=== PATIENT | male | born 1965 | race Caucasian/White ===

== ENCOUNTER 2016-10-31 20:54 | Emergency (ER) | payer MEDICAID ==
[2016-10-31] MEDS ORDERED: ONDANSETRON 4MG/2ML VIAL (J2405) As Ordered ONE (21:50)
[2016-10-31] MEDS ORDERED: IPRATROPIUM 0.5MG/ALBUTEROL 2.5MG INH SOL UD 3ML (DUONEB)(J7620) As Ordered ONE ×2 (21:58→22:19)
[2016-10-31 22:05] LABS: BASO # 0.2 K/mm3 (0.0-0.2); BASO % 1.8 % (0.0-1.0); EOS # 0.2 K/mm3 (0.0-0.50); LARGE UNSTAINED CELL # 0.1 K/mm3 (0.0-0.4); LARGE UNSTAINED CELL % 1.5 % (0.0-4.0); LYMPH # 1.1 K/mm3 (1.5-4.5); LYMPH % 10.5 % (24.0-44.0); MEAN CORPUSCULAR HEMOGLOBIN 31.4 pg (27.0-33.0); MEAN CORPUSCULAR HGB CONC 32.7 g/dl (32.0-36.5); MONO # 0.3 K/mm3 (0.0-0.8); MONO % 3.1 % (0.0-5.0); NEUTROPHILS # 7.4 K/mm3 (1.8-7.7); NEUTROPHILS % 81.1 % (36.0-66.0); PLATELET COUNT, AUTOMATED 198 k/mm3 (150-450); RED CELL DISTRIBUTION WIDTH 13.4 % (11.5-14.5); WHITE BLOOD COUNT 9.1 K/mm3 (4.0-10.0)
[2016-10-31 22:29] LABS: ALBUMIN 3.7 GM/DL (3.2-5.2); ALBUMIN/GLOBULIN RATIO 1.03 (1.00-1.93); ALKALINE PHOSPHATASE 78 U/L (45-117); ALT/SGPT 26 U/L (12-78); AMYLASE 37 U/L (25-115); ANION GAP 9 MEQ/L (8-16); AST/SGOT 13 U/L (15-37); BILIRUBIN,DIRECT 0.3 MG/DL (0.0-0.2); BLOOD UREA NITROGEN 12 MG/DL (7-18); CALCIUM LEVEL 8.2 MG/DL (8.5-10.1); CARBON DIOXIDE LEVEL 28 MEQ/L (21-32); CHLORIDE LEVEL 103 MEQ/L (98-107); CREATININE FOR GFR 1.02 MG/DL (0.70-1.30); GLOMERULAR FILTRATION RATE > 60.0 (>56); GLUCOSE, FASTING 97 MG/DL (70-105); POTASSIUM SERUM 3.7 MEQ/L (3.5-5.1); SODIUM LEVEL 140 MEQ/L (136-145); TOTAL PROTEIN 7.3 GM/DL (6.4-8.2)
[2016-10-31] MEDS ORDERED: AUGMENTIN 875 MG TAB As Ordered ONE (23:06)
[2016-10-31] MEDS ORDERED: ONDANSETRON 4 MG ORAL DISINTEGRATING TAB (S0181) As Ordered ONE (23:06)
--- NOTE | 2016-10-31 23:18 | EDDOCDS ---
Physician Documentation [facility] Name: Jimenez Maciel Age: 51 yrs Sex: Male : 1965 Arrival Date: 10/31/2016 Time: 20:54 Bed I6 / 28 Private MD: NO PRIMARY PHYSICIAN, . Disposition: 10/31/16 23:05 Discharged to Home/Self Care. Impression: Streptococcal pharyngitis, Acute bronchitis, Nausea and vomiting, Diarrhea, unspecified. - Condition is Stable. - Discharge Instructions: Diarrhea, Nausea and Vomiting, Cokq-py-Aeld, Strep Throat, Mxis-ly-Gdiu, Acute Bronchitis, Bnkw-yg-Skri. - Prescriptions for Augmentin 875- 125 mg Oral Tablet - take 1 tablet by ORAL route every 12 hours for 10 days; 20 tablet. Claritin 10 mg Oral Tablet - take 1 tablet by ORAL route once daily As needed; 30 tablet. ZOFRAN ODT 4 mg - dissolve 1 tablet by ORAL route 4 times per day As needed do not chew, do not swallow whole; 10 tablet. Mucinex 600 mg - take 1 tablet by ORAL route 2 times per day; 30 tablet. Albuterol Sulfate 90 mcg/actuation Inhalation HFA Aerosol Inhaler - inhale 2 puff by INHALATION route every 4 hours As needed; 1 Inhaler. - Medication Reconciliation, Local Pharmacy Hours, Referral List Call for Appointment, Work Release Form - 3 day form. - [facility]: [facility] ; When: 1 - 2 days; Reason: Recheck today's complaints, Continuance of care. Follow up: Emergency Department; Reason: Worsening of conditions. - Problem is new. - Symptoms have improved. Historical: - Allergies: no known allergies; - Home Meds: 1. none - PMHx: none; - PSHx: "paige in right leg"; - Social history: Smoking status: Patient uses tobacco products, heavy tobacco smoker. No barriers to communication noted, The patient speaks fluent Urdu. - Family history: Not pertinent. - : The pt / caregiver states he / she is not on anticoagulants. Home medication list is obtained from the patient. - Exposure Risk Screening:: None identified. Vital Signs: 10/31 20:56 BP 115 / 79; Pulse 92; Resp 18 S; Temp 98.4(O); Pulse Ox 96% on R/A; Weight 72.57 kg / gr2 159.99 lbs (R); Height 5 ft. 7 in. (170.18 cm) (R); Pain 2/10; 23:14 BP 115 / 70; Pulse 83; Resp 20; Temp 98.7(O); Pulse Ox 95% on R/A; Pain 0/10; jmv 20:56 Body Mass Index 25.06 (72.57 kg, 170.18 cm) gr2 MDM: 21:22 ECG WITH READING ER PHYS+CARDIAG ordered. EDMS 21:44 Albuterol-Ipratropium 1 neb Nebulizer every 20 minutes x3 ordered. ef1 21:44 Call Respiratory ordered. ef1 21:44 NS 0.9% 1000 ml IV at bolus once ordered. ef1 21:44 Ondansetron 4 mg IVP once ordered. ef1 21:44 IV Saline Lock ordered. ef1 21:44 Undress patient appropriately for examination ordered. ef1 21:44 Strep Screen, Nursing ordered. ef1 21:44 Obtain sample by nasopharyngeal swab ordered. ef1 21:45 Amylase Ordered. EDMS 21:45 Basic Metabolic Profile Ordered. EDMS 21:45 CBC with Diff Ordered. EDMS 21:45 Lipase Ordered. EDMS 21:45 Liver Profile Ordered. EDMS 21:45 Urinalysis Ordered. EDMS 21:45 Urine Culture Ordered. EDMS 21:45 -Influenza A&B Rapid Antigen - Nose Ordered. EDMS 21:45 Chest, 2 View (pa\\E\\lat) Ordered. EDMS 21:46 NOTHING BY MOUTH+DIET ordered. EDMS 21:49 Call Respiratory complete. rs6 22:09 CBC with Diff Reviewed. ef1 22:26 Financial registration complete. zo 22:32 [facility] Payment Agreement was scanned into [employer] and attached to record. zo 22:56 Basic Metabolic Profile Reviewed. ef1 22:56 Liver Profile Reviewed. ef1 22:56 Urinalysis Reviewed. ef1 22:56 Amylase Reviewed. ef1 22:56 Lipase Reviewed. ef1 22:56 -Influenza A&B Rapid Antigen - Nose Reviewed. ef1 23:02 Amoxicillin-Clavulanate 875 mg 1 tabs PO once ordered. ef1 23:04 Ondansetron ODT Oral Disintegrating Tablet 4 mg PO once; For take home use please ef1 ordered. Administered Medications: 21:58 Drug: NS 0.9% 1000 ml [sodium chloride 0.9 % intravenous solution] Route: IV; Rate: lf1 bolus; Site: right antecubital; 21:59 Drug: Albuterol-Ipratropium 1 neb [ipratropium-albuterol 0.5 mg-3 mg(2.5 mg base)/3 mL jh6 nebulization soln (1 neb)] Route: Nebulizer; 21:59 Drug: Ondansetron 4 mg [ondansetron HCl 2 mg/mL intravenous solution (2 mL)] Route: lf1 IVP; Site: right antecubital; 22:19 Drug: Albuterol-Ipratropium 1 neb [ipratropium-albuterol 0.5 mg-3 mg(2.5 mg base)/3 mL jh6 nebulization soln (1 neb)] Route: Nebulizer; 23:10 Drug: Amoxicillin-Clavulanate 1 tabs [amoxicillin 875 mg-potassium clavulanate 125 mg ka4 tablet (1 tabs)] Route: PO; 23:10 Drug: Ondansetron ODT 4 mg [ondansetron 4 mg disintegrating tablet (1 tabs)] {Note: ka4 dispensed to pt to take home.} Route: PO; Signatures: Dispatcher [employer] Moises Young Lisa,RN RN lf1 Marcelina Mcgee, PA-C PA-C ef1 Loly Momin,MANAGER BALANCE MANAGER BALANCE ka4 Kevin Hernández RN RN mb9 Sonya Anderson, PIPE ORGAN MECHANIC APPRENTICE PIPE ORGAN MECHANIC APPRENTICE rs6 Nelson Chacon 6 The chart was reviewed and I authenticate all verbal orders and agree with the evaluation and treatment provided.Attachments: 22:32 [facility] Payment Agreement zo MTDD
--- NOTE | 2016-10-31 23:18 | EDDOCDS ---
Nurse's Notes [facility] Name: Jimenez Maciel Age: 51 yrs Sex: Male : 1965 Arrival Date: 10/31/2016 Time: 20:54 Bed I6 Private MD: NO PRIMARY PHYSICIAN, . Diagnosis: Streptococcal pharyngitis;Acute bronchitis;Nausea and vomiting;Diarrhea, unspecified Presentation: 10/31 21:02 Presenting complaint: Patient states: "I don't feel good. I woke up last night throwing mb9 up and shittin. Basically if I cough I shit myself. I've had a runny nose and a cough and I feel short of breath". Adult Sepsis Screening: The patient does not have new or worsening altered mentation. Patient's respiratory rate is less than 22. Systolic blood pressure is greater than 100. Patient has a qSOFA score of 0- Negative Sepsis Screen. Suicide/Homicide risk assessment- the patient denies having any suicidal and/or homicidal ideations and does not present with any other emotional, behavioral or mental health complaints. Status: Patient is not a director of home health services or dependent. Transition of care: patient was not received from another setting of care. 21:02 Method Of Arrival: Walkin/Carried/Asstd mb9 21:05 Acuity: RUFINA Level 3 mb9 Triage Assessment: 21:05 General: Appears ill, Behavior is appropriate for age, cooperative. Pain: Denies pain. mb9 Pt Declines HIV testing. Respiratory: Airway is patent Respiratory effort is even, unlabored. GI: Reports nausea, vomiting. 23:12 Respiratory: Onset: The symptoms/episode began/occurred. ka4 Historical: - Allergies: no known allergies; - Home Meds: 1. none - PMHx: none; - PSHx: "paige in right leg"; - Social history: Smoking status: Patient uses tobacco products, heavy tobacco smoker. No barriers to communication noted, The patient speaks fluent Maori. - Family history: Not pertinent. - : The pt / caregiver states he / she is not on anticoagulants. Home medication list is obtained from the patient. - Exposure Risk Screening:: None identified. Screenin:03 Screening information is obtained from the patient. Fall risk: No risks identified. lf1 Assistance ADL's: requires no assistance with activities of daily living. 23:11 Abuse/DV Screen: The patient / caregiver reports he/she is: not in a situation that ka4 causes fear, pain or injury. Nutritional screening: No deficits noted. Advance Directives: There is no active DNR order. home support is adequate. Assessment: 22:03 Adult Sepsis Screening: The patient does not have new or worsening altered mentation. lf1 Patient's respiratory rate is less than 22. Systolic blood pressure is greater than 100. Patient has a qSOFA score of 0- Negative Sepsis Screen. General: Appears in no apparent distress, comfortable, Behavior is cooperative. Pain: Location: abdomen Pain currently is 4 out of 10 on a pain scale. Quality of pain is described as aching, crampy. Neurological: Level of Consciousness is awake, alert, Oriented to person, place, time, Speech is normal. EENT: Reports nasal congestion. Cardiovascular: Chest pain is denied. Respiratory: Respiratory effort is even, unlabored, Respiratory pattern is regular, Breath sounds are coarse Reports cough that is non-productive. GI: Reports diarrhea, nausea, vomiting. : No deficits noted. Derm: Skin is flushed. Injury Description: No known injury. Vital Signs: 20:56 BP 115 / 79; Pulse 92; Resp 18 S; Temp 98.4(O); Pulse Ox 96% on R/A; Weight 72.57 kg gr2 (R); Height 5 ft. 7 in. (170.18 cm) (R); Pain 2/10; 23:14 BP 115 / 70; Pulse 83; Resp 20; Temp 98.7(O); Pulse Ox 95% on R/A; Pain 0/10; jmv 20:56 Body Mass Index 25.06 (72.57 kg, 170.18 cm) gr2 Vitals: 20:56 Log In Time: October 31, 2016 at 20:56. gr2 ED Course: 20:55 Patient visited by Isabel Blake. gr2 20:55 NO PRIMARY PHYSICIAN, . is Private Physician. gr2 20:55 Patient moved to Waiting gr2 20:57 Patient visited by Isabel Blake. gr2 20:57 Patient moved to Pre RCE gr2 21:04 Triage Initiated mb9 21:20 Patient moved to Triage 1 rs6 21:32 Patient visited by Sonya Anderson, HEARING IMPAIRED ITINERANT TEACHER. rs6 21:32 EKG done. (by ED staff). Reviewed by Ovi Hansen DO. rs6 21:36 Marcel[facility] Mcgee [facility]-C [facility]. ef1 21:36 Ovi Hansen DO is Attending Physician. ef1 21:36 Patient visited by Mareclina Mcgee PA-C. ef1 21:49 Patient moved to rs6 21:54 -Influenza A&B Rapid Antigen - Nose Sent. km 22:00 Patient visited by Tanja Scott RN. lf1 22:03 The patient / caregiver is instructed regarding the plan of care and ED course. lf1 Accompanied by Family Member. 22:03 Inserted saline lock: 20 gauge in right antecubital area and blood collected. The [facility] patient tolerated the procedure well. By Giselle Lyles RN. 22:08 Labs drawn. (by ED staff). Sent per order to lab. [facility] 22:31 Patient visited by Marcelina Mcgee PA-C. ef1 22:32 [facility] Payment Agreement was scanned into [employer] and attached to record. zo 22:38 Urinalysis Sent. ttb 22:38 Urine Culture Sent. ttb 22:38 Urine collected. ttb 22:53 Patient visited by Marcelina Mcgee PA-C. ef1 23:05 [facility] is Referral Physician. ef1 23:11 Discontinued IV lock intact, bleeding controlled, pressure dressing applied, No ka4 redness/swelling at site. No procedures done that require assistance. 23:15 Patient visited by Per Gaytan PCA. nicci 23:18 Patient visited by Loly Momin LPN. ka4 Administered Medications: 21:58 Drug: NS 0.9% 1000 ml [sodium chloride 0.9 % intravenous solution] Route: IV; Rate: lf1 bolus; Site: right antecubital; 21:59 Drug: Albuterol-Ipratropium 1 neb [ipratropium-albuterol 0.5 mg-3 mg(2.5 mg base)/3 mL 6 nebulization soln (1 neb)] Route: Nebulizer; 21:59 Drug: Ondansetron 4 mg [ondansetron HCl 2 mg/mL intravenous solution (2 mL)] Route: lf1 IVP; Site: right antecubital; 22:19 Drug: Albuterol-Ipratropium 1 neb [ipratropium-albuterol 0.5 mg-3 mg(2.5 mg base)/3 mL jh6 nebulization soln (1 neb)] Route: Nebulizer; 23:10 Drug: Amoxicillin-Clavulanate 1 tabs [amoxicillin 875 mg-potassium clavulanate 125 mg ka4 tablet (1 tabs)] Route: PO; 23:10 Drug: Ondansetron ODT 4 mg [ondansetron 4 mg disintegrating tablet (1 tabs)] {Note: ka4 dispensed to pt to take home.} Route: PO; RT: 21:59 Initial Med Neb Given as ordered Patient was instructed and evaluated on procedure jh6 Patient tolerated procedure well without adverse effect. Respiratory: Airway is patent Respiratory effort is even, unlabored, Respiratory pattern is regular symmetrical, Breath sounds are diminished in right upper lobe, left upper lobe, right middle lobe, left lower lobe, right lower lobe, left posterior upper lobe, right posterior upper lobe, left posterior lower lobe, right posterior middle lobe and right posterior lower lobe. 22:09 Respiratory: Airway is patent Respiratory effort is even, unlabored, Respiratory jh6 pattern is regular symmetrical, Breath sounds are clear in right upper lobe, left upper lobe, right middle lobe, left lower lobe, right lower lobe, left posterior upper lobe and right posterior upper lobe Breath sounds are diminished in left lower lobe, right lower lobe, left posterior upper lobe, right posterior upper lobe, left posterior lower lobe, right posterior middle lobe and right posterior lower lobe. 22:20 Subsequent Med Neb Given as ordered Patient was reinforced on procedure Patient jh6 tolerated procedure well without adverse effect. Respiratory: Airway is patent Respiratory effort is even, unlabored, Respiratory pattern is regular symmetrical, Breath sounds are clear in right upper lobe, left upper lobe, right middle lobe, left lower lobe and right lower lobe. Order Results: Lab Order: Amylase; SPEC'M 10/31/16 21:56 Test: AMYLASE; Value: 37; Range: 25-115; Units: U/L; Status: F Lab Order: Basic Metabolic Profile; SPEC'M 10/31/16 21:56 Test: GLUCOSE, FASTING; Value: 97; Range: 70-105; Units: MG/DL; Status: F Test: BLOOD UREA NITROGEN; Value: 12; Range: 7-18; Units: MG/DL; Status: F Test: CREATININE FOR GFR; Value: 1.02; Range: 0.70-1.30; Units: MG/DL; Status: F Test: GLOMERULAR FILTRATION RATE; Value: > 60.0; Range: >56; Status: F Test: SODIUM LEVEL; Value: 140; Range: 136-145; Units: MEQ/L; Status: F Test: POTASSIUM SERUM; Value: 3.7; Range: 3.5-5.1; Units: MEQ/L; Status: F Test: CHLORIDE LEVEL; Value: 103; Range: 98-107; Units: MEQ/L; Status: F Test: CARBON DIOXIDE LEVEL; Value: 28; Range: 21-32; Units: MEQ/L; Status: F Test: ANION GAP; Value: 9; Range: 8-16; Units: MEQ/L; Status: F Test: CALCIUM LEVEL; Value: 8.2; Range: 8.5-10.1; Abnormal: Below low normal; Units: MG/DL; Status: F Test Note: ; Units are mL/min/1.73 m2 Chronic Kidney Disease Staging per NKF: Stage I & II GFR >=60 Normal to Mildly Decreased Stage III GFR 30-59 Moderately Decreased Stage IV GFR 15-29 Severely Decreased Stage V GFR <15 Very Little GFR Left ESRD GFR <15 on SOLDER DEPOSIT OPERATOR Lab Order: CBC with Diff; SPEC'M 10/31/16 21:56 Test: WHITE BLOOD COUNT; Value: 9.1; Range: 4.0-10.0; Units: K/mm3; Status: F Test: RED BLOOD COUNT; Value: 5.29; Range: 4.30-6.10; Units: M/mm3; Status: F Test: HEMOGLOBIN; Value: 16.6; Range: 14.0-18.0; Units: g/dl; Status: F Test: HEMATOCRIT; Value: 50.8; Range: 42.0-52.0; Units: %; Status: F Test: MEAN CORPUSCULAR VOLUME; Value: 96.0; Range: 80.0-96.0; Units: fl; Status: F Test: MEAN CORPUSCULAR HEMOGLOBIN; Value: 31.4; Range: 27.0-33.0; Units: pg; Status: F Test: MEAN CORPUSCULAR HGB CONC; Value: 32.7; Range: 32.0-36.5; Units: g/dl; Status: F Test: RED CELL DISTRIBUTION WIDTH; Value: 13.4; Range: 11.5-14.5; Units: %; Status: F Test: PLATELET COUNT, AUTOMATED; Value: 198; Range: 150-450; Units: k/mm3; Status: F Test: NEUTROPHILS %; Value: 81.1; Range: 36.0-66.0; Abnormal: Above high normal; Units: %; Status: F Test: LYMPH %; Value: 10.5; Range: 24.0-44.0; Abnormal: Below low normal; Units: %; Status: F Test: MONO %; Value: 3.1; Range: 0.0-5.0; Units: %; Status: F Test: EOS %; Value: 2.0; Range: 0.0-3.0; Units: %; Status: F Test: BASO %; Value: 1.8; Range: 0.0-1.0; Abnormal: Above high normal; Units: %; Status: F Test: LARGE UNSTAINED CELL %; Value: 1.5; Range: 0.0-4.0; Units: %; Status: F Test: NEUTROPHILS #; Value: 7.4; Range: 1.8-7.7; Units: K/mm3; Status: F Test: LYMPH #; Value: 1.1; Range: 1.5-4.5; Abnormal: Below low normal; Units: K/mm3; Status: F Test: MONO #; Value: 0.3; Range: 0.0-0.8; Units: K/mm3; Status: F Test: EOS #; Value: 0.2; Range: 0.0-0.50; Units: K/mm3; Status: F Test: BASO #; Value: 0.2; Range: 0.0-0.2; Units: K/mm3; Status: F Test: LARGE UNSTAINED CELL #; Value: 0.1; Range: 0.0-0.4; Units: K/mm3; Status: F Lab Order: Lipase; SPEC'M 10/31/16 21:56 Test: LIPASE; Value: 146; Range: 73-393; Units: U/L; Status: F Lab Order: Liver Profile; SPEC'M 10/31/16 21:56 Test: AST/SGOT; Value: 13; Range: 15-37; Abnormal: Below low normal; Units: U/L; Status: F Test: ALT/SGPT; Value: 26; Range: 12-78; Units: U/L; Status: F Test: ALKALINE PHOSPHATASE; Value: 78; Range: 45-117; Units: U/L; Status: F Test: BILIRUBIN,TOTAL; Value: 1.0; Range: 0.2-1.0; Units: MG/DL; Status: F Test: BILIRUBIN,DIRECT; Value: 0.3; Range: 0.0-0.2; Abnormal: Above high normal; Units: MG/DL; Status: F Test: TOTAL PROTEIN; Value: 7.3; Range: 6.4-8.2; Units: GM/DL; Status: F Test: ALBUMIN; Value: 3.7; Range: 3.2-5.2; Units: GM/DL; Status: F Test: ALBUMIN/GLOBULIN RATIO; Value: 1.03; Range: 1.00-1.93; Status: F Lab Order: Urinalysis; SPEC'M 10/31/16 21:55 Test: APPEARANCE, URINE; Value: HAZY; Range: CLEAR; Status: F Test: COLOR, URINE; Value: YELLOW; Range: YELLOW; Status: F Test: PH,URINE; Value: 5.0; Range: 5.0-9.0; Units: UNITS; Status: F Test: SPECIFIC GRAVITY URINE AUTO; Value: 1.028; Range: 1.002-1.035; Status: F Test: PROTEIN, URINE AUTO; Value: 1+; Range: NEGATIVE; Abnormal: Above high normal; Units: mg/dL; Status: F Test: GLUCOSE, URINE (UA) AUTO; Value: NEGATIVE; Range: NEGATIVE; Units: mg/dL; Status: F Test: KETONE, URINE AUTO; Value: NEGATIVE; Range: NEGATIVE; Units: mg/dL; Status: F Test: UROBILINOGEN, URINE AUTO; Value: 0.2; Range: 0.0-2.0; Units: mg/dL; Status: F Test: BILIRUBIN, URINE AUTO; Value: NEGATIVE; Range: NEGATIVE; Status: F Test: NITRITE, URINE AUTO; Value: NEGATIVE; Range: NEGATIVE; Status: F Test: LEUKOCYTE ESTERASE, URINE AUTO; Value: NEGATIVE; Range: NEGATIVE; Status: F Test: BLOOD, URINE BLOOD; Value: 1+; Range: NEGATIVE; Abnormal: Above high normal; Status: F Test: WBC, URINE AUTO; Value: 2; Range: 0-3; Units: /HPF; Status: F Test: RBC, URINE AUTO; Value: 4; Range: 0-3; Abnormal: Above high normal; Units: /HPF; Status: F Test: BACTERIA, URINE AUTO; Value: NEGATIVE; Range: NEGATIVE; Status: F Test: SQUAMOUS EPITHELIAL CELL UR AU; Value: 0; Range: 0-6; Units: /HPF; Status: F Test: MUCUS, URINE; Value: LARGE; Range: NEGATIVE; Status: F Test: HYALINE CAST, URINE AUTO; Value: 0; Range: 0-1; Units: /LPF; Status: F Lab Order: -Influenza A&B Rapid Antigen - Nose; SPEC'M 10/31/16 21:55 Test: INFLUENZA A RAPID SCR by ICA; Value: INFLUENZA A RESULTS NEGATIVE; Status: F Test: INFLUENZA A RAPID SCR by ICA; Value: Comments:; Status: F Test: INFLUENZA B RAPID SCR by ICA; Value: INFLUENZA B RESULTS NEGATIVE; Status: F Test Note: ; The Influenza test is a direct rapid immunoassay for the qualitative detection of Influenza viral antigen. Cell culture (Viral Culture) testing should be considered to confirm NEGATIVE results and to assist in detecting other viruses that can provide similar clinical symptoms. Please contact the lab within 24 hours ([phone]) if confirmatory testing is desired. Outcome: 23:05 Discharge ordered by Provider. ef1 23:11 Discharge Assessment: Patient awake, alert and oriented x 3. No cognitive and/or ka4 functional deficits noted. Patient verbalized understanding of disposition instructions. patient administered narcotics - no. The following High Risk Discharge criteria are identified: None. Discharged to home ambulatory, with significant other. Condition: good Condition: stable Condition: improved. Discharge instructions given to patient, significant other, Instructed on discharge instructions, follow up and referral plans. medication usage, benefits of quitting smoking, Demonstrated understanding of instructions, medications, Pt was receptive of discharge instructions/ teaching. Prescriptions given X x5. No special radiology studies were completed. Property :Personal belongings accompany Pt. 23:18 Patient left the ED. ka4 Signatures: Kita Nix, RN RN kmg1 Moises Valera LisaRN RN lf1 Marcelina Mcege, PA-C PA-C ef1 Nelson Chacon 6 Giselle Lyles,RN RN [facility] Na Mejía RN RN ttb Isabel Blake 2 Loly Momin,SPORTS MARKETER SPORTS MARKETER ka4 Kevin Hernández RN RN mb9 Sonya Anderson, HEARING IMPAIRED ITINERANT TEACHER HEARING IMPAIRED ITINERANT TEACHER rs6 Gaytan, Per, HEARING IMPAIRED ITINERANT TEACHER HEARING IMPAIRED ITINERANT TEACHER jmv Corrections: (The following items were deleted from the chart) 21:05 21:02 Acuity: RUFINA Level 4 mb9 mb9 22:09 22:03 Inserted saline lock: 20 gauge in right antecubital area By Giselle Lyles RN lf1 [facility] MTDD
--- NOTE | 2016-11-01 08:35 | ECGEPIP ---
Stationary ECG Study [facility] - ED Test Date: 2016-10-31 Pat Name: BRANDON RODRIGES Department: Room: - Gender: M Frame Trimmer: jen : 1965 Requested By: Marcelina Mcgee PA-C Order Number: [id number] Reading MD: Benito Mancilla Measurements Intervals [place] Rate: 83 P: 79 WV: 154 QRS: 85 QRSD: 90 T: 66 QT: 329 QTc: 388 Interpretive Statements SINUS RHYTHM Electronically Signed On 11-01-2016 8:35:31 EST by Benito Mancilla
--- NOTE | 2016-11-01 08:40 | REP ---
Chest x-ray: Two views. History: Cough. . Comparison study: No comparison studies . Findings: The lungs are well inflated and free of infiltrate. The pleural angles are sharp. The heart size is normal. Pulmonary vasculature is not increased. No significant bony abnormality is seen. Impression: Negative chest x-ray. Signed by Aaron Cramer MD 11/01/2016 08:32 A
--- NOTE | 2016-11-03 00:18 | EDDOCDS ---
Physician Documentation [facility] Name: Jimenez Maciel Age: 51 yrs Sex: Male : 1965 Arrival Date: 10/31/2016 Time: 20:54 Bed I6 / 28 Private MD: NO PRIMARY PHYSICIAN, . Disposition: 10/31/16 23:05 Discharged to Home/Self Care. Impression: Streptococcal pharyngitis, Acute bronchitis, Nausea and vomiting, Diarrhea, unspecified. - Condition is Stable. - Discharge Instructions: Diarrhea, Nausea and Vomiting, Tirc-lc-Poie, Strep Throat, Jayf-ah-Dcoc, Acute Bronchitis, Lbot-bo-Faim. - Prescriptions for Augmentin 875- 125 mg Oral Tablet - take 1 tablet by ORAL route every 12 hours for 10 days; 20 tablet. Claritin 10 mg Oral Tablet - take 1 tablet by ORAL route once daily As needed; 30 tablet. ZOFRAN ODT 4 mg - dissolve 1 tablet by ORAL route 4 times per day As needed do not chew, do not swallow whole; 10 tablet. Mucinex 600 mg - take 1 tablet by ORAL route 2 times per day; 30 tablet. Albuterol Sulfate 90 mcg/actuation Inhalation HFA Aerosol Inhaler - inhale 2 puff by INHALATION route every 4 hours As needed; 1 Inhaler. - Medication Reconciliation, Local Pharmacy Hours, Referral List Call for Appointment, Work Release Form - 3 day form. - [facility]: [facility] ; When: 1 - 2 days; Reason: Recheck today's complaints, Continuance of care. Follow up: Emergency Department; Reason: Worsening of conditions. - Problem is new. - Symptoms have improved. Historical: - Allergies: no known allergies; - Home Meds: 1. none - PMHx: none; - PSHx: "paige in right leg"; - Social history: Smoking status: Patient uses tobacco products, heavy tobacco smoker. No barriers to communication noted, The patient speaks fluent Frisian. - Family history: Not pertinent. - : The pt / caregiver states he / she is not on anticoagulants. Home medication list is obtained from the patient. - Exposure Risk Screening:: None identified. Vital Signs: 10/31 20:56 BP 115 / 79; Pulse 92; Resp 18 S; Temp 98.4(O); Pulse Ox 96% on R/A; Weight 72.57 kg / gr2 159.99 lbs (R); Height 5 ft. 7 in. (170.18 cm) (R); Pain 2/10; 23:14 BP 115 / 70; Pulse 83; Resp 20; Temp 98.7(O); Pulse Ox 95% on R/A; Pain 0/10; jmv 20:56 Body Mass Index 25.06 (72.57 kg, 170.18 cm) gr2 MDM: 21:22 ECG WITH READING ER PHYS+CARDIAG ordered. EDMS 21:44 Albuterol-Ipratropium 1 neb Nebulizer every 20 minutes x3 ordered. ef1 21:44 Call Respiratory ordered. ef1 21:44 NS 0.9% 1000 ml IV at bolus once ordered. ef1 21:44 Ondansetron 4 mg IVP once ordered. ef1 21:44 IV Saline Lock ordered. ef1 21:44 Undress patient appropriately for examination ordered. ef1 21:44 Strep Screen, Nursing ordered. ef1 21:44 Obtain sample by nasopharyngeal swab ordered. ef1 21:45 Amylase Ordered. EDMS 21:45 Basic Metabolic Profile Ordered. EDMS 21:45 CBC with Diff Ordered. EDMS 21:45 Lipase Ordered. EDMS 21:45 Liver Profile Ordered. EDMS 21:45 Urinalysis Ordered. EDMS 21:45 Urine Culture Ordered. EDMS 21:45 -Influenza A&B Rapid Antigen - Nose Ordered. EDMS 21:45 Chest, 2 View (pa\\E\\lat) Ordered. EDMS 21:46 NOTHING BY MOUTH+DIET ordered. EDMS 21:49 Call Respiratory complete. rs6 22:09 CBC with Diff Reviewed. ef1 22:26 Financial registration complete. zo 22:32 [facility] Payment Agreement was scanned into [facility] [facility] and attached to record. zo 22:56 Basic Metabolic Profile Reviewed. ef1 22:56 Liver Profile Reviewed. ef1 22:56 Urinalysis Reviewed. ef1 22:56 Amylase Reviewed. ef1 22:56 Lipase Reviewed. ef1 22:56 -Influenza A&B Rapid Antigen - Nose Reviewed. ef1 23:02 Amoxicillin-Clavulanate 875 mg 1 tabs PO once ordered. ef1 23:04 Ondansetron ODT Oral Disintegrating Tablet 4 mg PO once; For take home use please ef1 ordered. 11/01 09:39 T-Sheet-- Draft Copy was scanned into [facility] [facility] and attached to record. gb 09:39 ECG/EKG was scanned into [facility] [facility] and attached to record. gb Administered Medications: 10/31 21:58 Drug: NS 0.9% 1000 ml [sodium chloride 0.9 % intravenous solution] Route: IV; Rate: lf1 bolus; Site: right antecubital; 21:59 Drug: Albuterol-Ipratropium 1 neb [ipratropium-albuterol 0.5 mg-3 mg(2.5 mg base)/3 mL 6 nebulization soln (1 neb)] Route: Nebulizer; 21:59 Drug: Ondansetron 4 mg [ondansetron HCl 2 mg/mL intravenous solution (2 mL)] Route: lf1 IVP; Site: right antecubital; 22:19 Drug: Albuterol-Ipratropium 1 neb [ipratropium-albuterol 0.5 mg-3 mg(2.5 mg base)/3 mL jh6 nebulization soln (1 neb)] Route: Nebulizer; 23:10 Drug: Amoxicillin-Clavulanate 1 tabs [amoxicillin 875 mg-potassium clavulanate 125 mg ka4 tablet (1 tabs)] Route: PO; 23:10 Drug: Ondansetron ODT 4 mg [ondansetron 4 mg disintegrating tablet (1 tabs)] {Note: ka4 dispensed to pt to take home.} Route: PO; 23:18 Follow up: Response: Med's dispensed home ka4 23:19 Follow up: Response: Pt left department before re-evaluation is appropriate ka4 Signatures: Dispatcher [employer] EDMS Liliana Rivera, Reg Reg gb Moises Valera Lisa,RN RN lf1 Marcelina Mcgee, PAShubhamC PA-Kwabena ef1 Loly Momin LPN E COMMERCE PROJECT MANAGER ka4 Kevin Hernández RN RN mb9 Sonya Anderson, JOSE BRIMMING MACHINE OPERATOR jen6 Nelson Chacon jh6 The chart was reviewed and I authenticate all verbal orders and agree with the evaluation and treatment provided.Attachments: 22:32 [facility] Payment Agreement zo 11/01 09:39 T-Sheet-- Draft Copy gb 09:39 ECG/EKG gb Chart Complete MTDD
--- NOTE | 2016-11-03 00:18 | EDDOCDS ---
Nurse's Notes [facility] Name: Brandon Rodriges Age: 51 yrs Sex: Male : 1965 Arrival Date: 10/31/2016 Time: 20:54 Bed I6 Private MD: NO PRIMARY PHYSICIAN, . Diagnosis: Streptococcal pharyngitis;Acute bronchitis;Nausea and vomiting;Diarrhea, unspecified Presentation: 10/31 21:02 Presenting complaint: Patient states: "I don't feel good. I woke up last night throwing mb9 up and shittin. Basically if I cough I shit myself. I've had a runny nose and a cough and I feel short of breath". Adult Sepsis Screening: The patient does not have new or worsening altered mentation. Patient's respiratory rate is less than 22. Systolic blood pressure is greater than 100. Patient has a qSOFA score of 0- Negative Sepsis Screen. Suicide/Homicide risk assessment- the patient denies having any suicidal and/or homicidal ideations and does not present with any other emotional, behavioral or mental health complaints. Status: Patient is not a reference services head or dependent. Transition of care: patient was not received from another setting of care. 21:02 Method Of Arrival: Walkin/Carried/Asstd mb9 21:05 Acuity: RUFINA Level 3 mb9 Triage Assessment: 21:05 General: Appears ill, Behavior is appropriate for age, cooperative. Pain: Denies pain. mb9 Pt Declines HIV testing. Respiratory: Airway is patent Respiratory effort is even, unlabored. GI: Reports nausea, vomiting. 23:12 Respiratory: Onset: The symptoms/episode began/occurred. ka4 Historical: - Allergies: no known allergies; - Home Meds: 1. none - PMHx: none; - PSHx: "paige in right leg"; - Social history: Smoking status: Patient uses tobacco products, heavy tobacco smoker. No barriers to communication noted, The patient speaks fluent Uzbek. - Family history: Not pertinent. - : The pt / caregiver states he / she is not on anticoagulants. Home medication list is obtained from the patient. - Exposure Risk Screening:: None identified. Screenin:03 Screening information is obtained from the patient. Fall risk: No risks identified. lf1 Assistance ADL's: requires no assistance with activities of daily living. 23:11 Abuse/DV Screen: The patient / caregiver reports he/she is: not in a situation that ka4 causes fear, pain or injury. Nutritional screening: No deficits noted. Advance Directives: There is no active DNR order. home support is adequate. Assessment: 22:03 Adult Sepsis Screening: The patient does not have new or worsening altered mentation. lf1 Patient's respiratory rate is less than 22. Systolic blood pressure is greater than 100. Patient has a qSOFA score of 0- Negative Sepsis Screen. General: Appears in no apparent distress, comfortable, Behavior is cooperative. Pain: Location: abdomen Pain currently is 4 out of 10 on a pain scale. Quality of pain is described as aching, crampy. Neurological: Level of Consciousness is awake, alert, Oriented to person, place, time, Speech is normal. EENT: Reports nasal congestion. Cardiovascular: Chest pain is denied. Respiratory: Respiratory effort is even, unlabored, Respiratory pattern is regular, Breath sounds are coarse Reports cough that is non-productive. GI: Reports diarrhea, nausea, vomiting. : No deficits noted. Derm: Skin is flushed. Injury Description: No known injury. Vital Signs: 20:56 BP 115 / 79; Pulse 92; Resp 18 S; Temp 98.4(O); Pulse Ox 96% on R/A; Weight 72.57 kg gr2 (R); Height 5 ft. 7 in. (170.18 cm) (R); Pain 2/10; 23:14 BP 115 / 70; Pulse 83; Resp 20; Temp 98.7(O); Pulse Ox 95% on R/A; Pain 0/10; jmv 20:56 Body Mass Index 25.06 (72.57 kg, 170.18 cm) gr2 Vitals: 20:56 Log In Time: October 31, 2016 at 20:56. gr2 ED Course: 20:55 Patient visited by Isabel Blake. gr2 20:55 NO PRIMARY PHYSICIAN, . is Private Physician. gr2 20:55 Patient moved to Waiting gr2 20:57 Patient visited by Isabel Blake. gr2 20:57 Patient moved to Pre RCE gr2 21:04 Triage Initiated mb9 21:20 Patient moved to Triage 1 rs6 21:32 Patient visited by Sonya Anderson, SURTASS ANALYST. rs6 21:32 EKG done. (by ED staff). Reviewed by Ovi Hansen DO. rs6 21:36 Marcelina Mcgee PA-C is PHCP. ef1 21:36 Ovi Hansen DO is Attending Physician. ef1 21:36 Patient visited by Marcelina Mcgee PA-C. ef1 21:49 Patient moved to rs6 21:54 -Influenza A&B Rapid Antigen - Nose Sent. kmg1 22:00 Patient visited by Tanja Scott RN. lf1 22:03 The patient / caregiver is instructed regarding the plan of care and ED course. lf1 Accompanied by Family Member. 22:03 Inserted saline lock: 20 gauge in right antecubital area and blood collected. The [facility] patient tolerated the procedure well. By Giselle Lyles RN. 22:08 Labs drawn. (by ED staff). Sent per order to lab. [facility] 22:31 Patient visited by Marcelina Mcgee PA-C. ef1 22:32 [facility] Payment Agreement was scanned into [employer] and attached to record. zo 22:38 Urinalysis Sent. ttb 22:38 Urine Culture Sent. ttb 22:38 Urine collected. ttb 22:53 Patient visited by Marcelina Mcgee PA-C. ef1 23:05 [facility] is Referral Physician. ef1 23:11 Discontinued IV lock intact, bleeding controlled, pressure dressing applied, No ka4 redness/swelling at site. No procedures done that require assistance. 23:15 Patient visited by Per Gaytan PCA. masoodv 23:18 Patient visited by Loly Momin LPN. ka4 23:19 Patient visited by Loly Momin LPN. ka4 11/01 09:01 EKG-ADULT Returned. EDMS 09:05 Chest, 2 View (pa\\E\\lat) Returned. EDMS 09:39 T-Sheet-- Draft Copy was scanned into [employer] and attached to record. gb 09:39 ECG/EKG was scanned into [employer] and attached to record. gb Administered Medications: 10/31 21:58 Drug: NS 0.9% 1000 ml [sodium chloride 0.9 % intravenous solution] Route: IV; Rate: lf1 bolus; Site: right antecubital; 21:59 Drug: Albuterol-Ipratropium 1 neb [ipratropium-albuterol 0.5 mg-3 mg(2.5 mg base)/3 mL jh6 nebulization soln (1 neb)] Route: Nebulizer; 21:59 Drug: Ondansetron 4 mg [ondansetron HCl 2 mg/mL intravenous solution (2 mL)] Route: lf1 IVP; Site: right antecubital; 22:19 Drug: Albuterol-Ipratropium 1 neb [ipratropium-albuterol 0.5 mg-3 mg(2.5 mg base)/3 mL jh6 nebulization soln (1 neb)] Route: Nebulizer; 23:10 Drug: Amoxicillin-Clavulanate 1 tabs [amoxicillin 875 mg-potassium clavulanate 125 mg ka4 tablet (1 tabs)] Route: PO; 23:10 Drug: Ondansetron ODT 4 mg [ondansetron 4 mg disintegrating tablet (1 tabs)] {Note: ka4 dispensed to pt to take home.} Route: PO; 23:18 Follow up: Response: Med's dispensed home ka4 23:19 Follow up: Response: Pt left department before re-evaluation is appropriate ka4 RT: 21:59 Initial Med Neb Given as ordered Patient was instructed and evaluated on procedure jh6 Patient tolerated procedure well without adverse effect. Respiratory: Airway is patent Respiratory effort is even, unlabored, Respiratory pattern is regular symmetrical, Breath sounds are diminished in right upper lobe, left upper lobe, right middle lobe, left lower lobe, right lower lobe, left posterior upper lobe, right posterior upper lobe, left posterior lower lobe, right posterior middle lobe and right posterior lower lobe. 22:09 Respiratory: Airway is patent Respiratory effort is even, unlabored, Respiratory jh6 pattern is regular symmetrical, Breath sounds are clear in right upper lobe, left upper lobe, right middle lobe, left lower lobe, right lower lobe, left posterior upper lobe and right posterior upper lobe Breath sounds are diminished in left lower lobe, right lower lobe, left posterior upper lobe, right posterior upper lobe, left posterior lower lobe, right posterior middle lobe and right posterior lower lobe. 22:20 Subsequent Med Neb Given as ordered Patient was reinforced on procedure Patient jh6 tolerated procedure well without adverse effect. Respiratory: Airway is patent Respiratory effort is even, unlabored, Respiratory pattern is regular symmetrical, Breath sounds are clear in right upper lobe, left upper lobe, right middle lobe, left lower lobe and right lower lobe. Order Results: Lab Order: Amylase; SPEC'M 10/31/16 21:56 Test: AMYLASE; Value: 37; Range: 25-115; Units: U/L; Status: F Lab Order: Basic Metabolic Profile; SPEC'M 10/31/16 21:56 Test: GLUCOSE, FASTING; Value: 97; Range: 70-105; Units: MG/DL; Status: F Test: BLOOD UREA NITROGEN; Value: 12; Range: 7-18; Units: MG/DL; Status: F Test: CREATININE FOR GFR; Value: 1.02; Range: 0.70-1.30; Units: MG/DL; Status: F Test: GLOMERULAR FILTRATION RATE; Value: > 60.0; Range: >56; Status: F Test: SODIUM LEVEL; Value: 140; Range: 136-145; Units: MEQ/L; Status: F Test: POTASSIUM SERUM; Value: 3.7; Range: 3.5-5.1; Units: MEQ/L; Status: F Test: CHLORIDE LEVEL; Value: 103; Range: 98-107; Units: MEQ/L; Status: F Test: CARBON DIOXIDE LEVEL; Value: 28; Range: 21-32; Units: MEQ/L; Status: F Test: ANION GAP; Value: 9; Range: 8-16; Units: MEQ/L; Status: F Test: CALCIUM LEVEL; Value: 8.2; Range: 8.5-10.1; Abnormal: Below low normal; Units: MG/DL; Status: F Test Note: ; Units are mL/min/1.73 m2 Chronic Kidney Disease Staging per NKF: Stage I & II GFR >=60 Normal to Mildly Decreased Stage III GFR 30-59 Moderately Decreased Stage IV GFR 15-29 Severely Decreased Stage V GFR <15 Very Little GFR Left ESRD GFR <15 on CONDUCTOR SYMPHONIC ORCHESTRA Lab Order: CBC with Diff; SPEC'M 10/31/16 21:56 Test: WHITE BLOOD COUNT; Value: 9.1; Range: 4.0-10.0; Units: K/mm3; Status: F Test: RED BLOOD COUNT; Value: 5.29; Range: 4.30-6.10; Units: M/mm3; Status: F Test: HEMOGLOBIN; Value: 16.6; Range: 14.0-18.0; Units: g/dl; Status: F Test: HEMATOCRIT; Value: 50.8; Range: 42.0-52.0; Units: %; Status: F Test: MEAN CORPUSCULAR VOLUME; Value: 96.0; Range: 80.0-96.0; Units: fl; Status: F Test: MEAN CORPUSCULAR HEMOGLOBIN; Value: 31.4; Range: 27.0-33.0; Units: pg; Status: F Test: MEAN CORPUSCULAR HGB CONC; Value: 32.7; Range: 32.0-36.5; Units: g/dl; Status: F Test: RED CELL DISTRIBUTION WIDTH; Value: 13.4; Range: 11.5-14.5; Units: %; Status: F Test: PLATELET COUNT, AUTOMATED; Value: 198; Range: 150-450; Units: k/mm3; Status: F Test: NEUTROPHILS %; Value: 81.1; Range: 36.0-66.0; Abnormal: Above high normal; Units: %; Status: F Test: LYMPH %; Value: 10.5; Range: 24.0-44.0; Abnormal: Below low normal; Units: %; Status: F Test: MONO %; Value: 3.1; Range: 0.0-5.0; Units: %; Status: F Test: EOS %; Value: 2.0; Range: 0.0-3.0; Units: %; Status: F Test: BASO %; Value: 1.8; Range: 0.0-1.0; Abnormal: Above high normal; Units: %; Status: F Test: LARGE UNSTAINED CELL %; Value: 1.5; Range: 0.0-4.0; Units: %; Status: F Test: NEUTROPHILS #; Value: 7.4; Range: 1.8-7.7; Units: K/mm3; Status: F Test: LYMPH #; Value: 1.1; Range: 1.5-4.5; Abnormal: Below low normal; Units: K/mm3; Status: F Test: MONO #; Value: 0.3; Range: 0.0-0.8; Units: K/mm3; Status: F Test: EOS #; Value: 0.2; Range: 0.0-0.50; Units: K/mm3; Status: F Test: BASO #; Value: 0.2; Range: 0.0-0.2; Units: K/mm3; Status: F Test: LARGE UNSTAINED CELL #; Value: 0.1; Range: 0.0-0.4; Units: K/mm3; Status: F Lab Order: Lipase; SPEC'M 10/31/16 21:56 Test: LIPASE; Value: 146; Range: 73-393; Units: U/L; Status: F Lab Order: Liver Profile; SPEC'M 10/31/16 21:56 Test: AST/SGOT; Value: 13; Range: 15-37; Abnormal: Below low normal; Units: U/L; Status: F Test: ALT/SGPT; Value: 26; Range: 12-78; Units: U/L; Status: F Test: ALKALINE PHOSPHATASE; Value: 78; Range: 45-117; Units: U/L; Status: F Test: BILIRUBIN,TOTAL; Value: 1.0; Range: 0.2-1.0; Units: MG/DL; Status: F Test: BILIRUBIN,DIRECT; Value: 0.3; Range: 0.0-0.2; Abnormal: Above high normal; Units: MG/DL; Status: F Test: TOTAL PROTEIN; Value: 7.3; Range: 6.4-8.2; Units: GM/DL; Status: F Test: ALBUMIN; Value: 3.7; Range: 3.2-5.2; Units: GM/DL; Status: F Test: ALBUMIN/GLOBULIN RATIO; Value: 1.03; Range: 1.00-1.93; Status: F Lab Order: Urinalysis; SPEC'M 10/31/16 21:55 Test: APPEARANCE, URINE; Value: HAZY; Range: CLEAR; Status: F Test: COLOR, URINE; Value: YELLOW; Range: YELLOW; Status: F Test: PH,URINE; Value: 5.0; Range: 5.0-9.0; Units: UNITS; Status: F Test: SPECIFIC GRAVITY URINE AUTO; Value: 1.028; Range: 1.002-1.035; Status: F Test: PROTEIN, URINE AUTO; Value: 1+; Range: NEGATIVE; Abnormal: Above high normal; Units: mg/dL; Status: F Test: GLUCOSE, URINE (UA) AUTO; Value: NEGATIVE; Range: NEGATIVE; Units: mg/dL; Status: F Test: KETONE, URINE AUTO; Value: NEGATIVE; Range: NEGATIVE; Units: mg/dL; Status: F Test: UROBILINOGEN, URINE AUTO; Value: 0.2; Range: 0.0-2.0; Units: mg/dL; Status: F Test: BILIRUBIN, URINE AUTO; Value: NEGATIVE; Range: NEGATIVE; Status: F Test: NITRITE, URINE AUTO; Value: NEGATIVE; Range: NEGATIVE; Status: F Test: LEUKOCYTE ESTERASE, URINE AUTO; Value: NEGATIVE; Range: NEGATIVE; Status: F Test: BLOOD, URINE BLOOD; Value: 1+; Range: NEGATIVE; Abnormal: Above high normal; Status: F Test: WBC, URINE AUTO; Value: 2; Range: 0-3; Units: /HPF; Status: F Test: RBC, URINE AUTO; Value: 4; Range: 0-3; Abnormal: Above high normal; Units: /HPF; Status: F Test: BACTERIA, URINE AUTO; Value: NEGATIVE; Range: NEGATIVE; Status: F Test: SQUAMOUS EPITHELIAL CELL UR AU; Value: 0; Range: 0-6; Units: /HPF; Status: F Test: MUCUS, URINE; Value: LARGE; Range: NEGATIVE; Status: F Test: HYALINE CAST, URINE AUTO; Value: 0; Range: 0-1; Units: /LPF; Status: F Lab Order: Urine Culture; SPEC'M 10/31/16 21:55 Test: URINE CULTURE; Value: URINE CULTURE RESULT NO GROWTH; Status: F Lab Order: -Influenza A&B Rapid Antigen - Nose; SPEC'M 10/31/16 21:55 Test: INFLUENZA A RAPID SCR by ICA; Value: INFLUENZA A RESULTS NEGATIVE; Status: F Test: INFLUENZA A RAPID SCR by ICA; Value: Comments:; Status: F Test: INFLUENZA B RAPID SCR by ICA; Value: INFLUENZA B RESULTS NEGATIVE; Status: F Test Note: ; The Influenza test is a direct rapid immunoassay for the qualitative detection of Influenza viral antigen. Cell culture (Viral Culture) testing should be considered to confirm NEGATIVE results and to assist in detecting other viruses that can provide similar clinical symptoms. Please contact the lab within 24 hours ([phone]) if confirmatory testing is desired. Radiology Order: EKG-ADULT Test: EKG-ADULT REASON FOR EXAMINATION: Chest Pain; Stationary ECG Study; [facility] - ED; ; Test Date: 2016-10-31; Pat Name: BRANDON RODRIGES Department:; Room: -; Gender: M Copier Operator: rs; : 1965 Requested By: Marcelina Mcgee PA-C; Order Number: [id number] Reading MD: Benito Mancilla; Measurements; Intervals [place]; Rate: 83 P: 79; MT: 154 QRS: 85; QRSD: 90 T: 66; QT: 329; QTc: 388; Interpretive Statements; SINUS RHYTHM; ; Electronically Signed On 11-01-2016 8:35:31 EST by Benito Mancilla; Radiology Order: Chest, 2 View (pa\\E\\lat) Test: Chest, 2 View (pa\\E\\lat) REASON FOR EXAMINATION: Cough; Chest x-ray: Two views.; ; History: Cough. .; ; Comparison study: No comparison studies .; ; Findings: The lungs are well inflated and free of infiltrate. The pleural; angles are sharp. The heart size is normal. Pulmonary vasculature is not; increased. No significant bony abnormality is seen.; ; Impression:; ; Negative chest x-ray.; ; ; Signed by; Aaron Cramer MD 11/01/2016 08:32 A; Outcome: 23:05 Discharge ordered by Provider. ef1 23:11 Discharge Assessment: Patient awake, alert and oriented x 3. No cognitive and/or ka4 functional deficits noted. Patient verbalized understanding of disposition instructions. patient administered narcotics - no. The following High Risk Discharge criteria are identified: None. Discharged to home ambulatory, with significant other. Condition: good Condition: stable Condition: improved. Discharge instructions given to patient, significant other, Instructed on discharge instructions, follow up and referral plans. medication usage, benefits of quitting smoking, Demonstrated understanding of instructions, medications, Pt was receptive of discharge instructions/ teaching. Prescriptions given X x5. No special radiology studies were completed. Property :Personal belongings accompany Pt. 23:18 Patient left the ED. ka4 Signatures: Dispatcher [employer] EDMS Kita Nix RN RN kmg1 Liliana Rivera, Reg Reg gb [place], Tanja Devlin,RN RN lf1 Marcelina Mcgee, KYLERC PAShubhamC ef1 Nelson Chacon 6 Giselle Lyles,RN RN [facility] Na Mejía, RN RN ttb Isabel Blake gr2 Merrill,Loly,CONVENTIONAL MORTGAGE UNDERWRITER CONVENTIONAL MORTGAGE UNDERWRITER ka4 Kevin HernándezRN RN mb9 Sonya Anderson, SURTASS ANALYST SURTASS ANALYST rs6 GaytanPer, SURTASS ANALYST SURTASS ANALYST jmv Corrections: (The following items were deleted from the chart) 21:05 21:02 Acuity: RUFINA Level 4 mb9 mb9 22:09 22:03 Inserted saline lock: 20 gauge in right antecubital area By Giselle Lyles, RN 1 [facility] Chart Complete MTDD
--- NOTE | 2016-11-03 00:18 | EDDOCDS ---
Physician Documentation [facility] Name: Jimenez Maciel Age: 51 yrs Sex: Male : 1965 Arrival Date: 10/31/2016 Time: 20:54 Bed I6 / 28 Private MD: NO PRIMARY PHYSICIAN, . Disposition: 10/31/16 23:05 Discharged to Home/Self Care. Impression: Streptococcal pharyngitis, Acute bronchitis, Nausea and vomiting, Diarrhea, unspecified. - Condition is Stable. - Discharge Instructions: Diarrhea, Nausea and Vomiting, [id number], Strep Throat, [id number], Acute Bronchitis, Zabv-ly-Gzpi. - Prescriptions for Augmentin 875- 125 mg Oral Tablet - take 1 tablet by ORAL route every 12 hours for 10 days; 20 tablet. Claritin 10 mg Oral Tablet - take 1 tablet by ORAL route once daily As needed; 30 tablet. ZOFRAN ODT 4 mg - dissolve 1 tablet by ORAL route 4 times per day As needed do not chew, do not swallow whole; 10 tablet. Mucinex 600 mg - take 1 tablet by ORAL route 2 times per day; 30 tablet. Albuterol Sulfate 90 mcg/actuation Inhalation HFA Aerosol Inhaler - inhale 2 puff by INHALATION route every 4 hours As needed; 1 Inhaler. - Medication Reconciliation, Local Pharmacy Hours, Referral List Call for Appointment, Work Release Form - 3 day form. - [facility]: [facility] ; When: 1 - 2 days; Reason: Recheck today's complaints, Continuance of care. Follow up: Emergency Department; Reason: Worsening of conditions. - Problem is new. - Symptoms have improved. Historical: - Allergies: no known allergies; - Home Meds: 1. none - PMHx: none; - PSHx: "paige in right leg"; - Social history: Smoking status: Patient uses tobacco products, heavy tobacco smoker. No barriers to communication noted, The patient speaks fluent Greek. - Family history: Not pertinent. - : The pt / caregiver states he / she is not on anticoagulants. Home medication list is obtained from the patient. - Exposure Risk Screening:: None identified. Vital Signs: 10/31 20:56 BP 115 / 79; Pulse 92; Resp 18 S; Temp 98.4(O); Pulse Ox 96% on R/A; Weight 72.57 kg / gr2 159.99 lbs (R); Height 5 ft. 7 in. (170.18 cm) (R); Pain 2/10; 23:14 BP 115 / 70; Pulse 83; Resp 20; Temp 98.7(O); Pulse Ox 95% on R/A; Pain 0/10; jmv 20:56 Body Mass Index 25.06 (72.57 kg, 170.18 cm) gr2 MDM: 21:22 ECG WITH READING ER PHYS+CARDIAG ordered. EDMS 21:44 Albuterol-Ipratropium 1 neb Nebulizer every 20 minutes x3 ordered. ef1 21:44 Call Respiratory ordered. ef1 21:44 NS 0.9% 1000 ml IV at bolus once ordered. ef1 21:44 Ondansetron 4 mg IVP once ordered. ef1 21:44 IV Saline Lock ordered. ef1 21:44 Undress patient appropriately for examination ordered. ef1 21:44 Strep Screen, Nursing ordered. ef1 21:44 Obtain sample by nasopharyngeal swab ordered. ef1 21:45 Amylase Ordered. EDMS 21:45 Basic Metabolic Profile Ordered. EDMS 21:45 CBC with Diff Ordered. EDMS 21:45 Lipase Ordered. EDMS 21:45 Liver Profile Ordered. EDMS 21:45 Urinalysis Ordered. EDMS 21:45 Urine Culture Ordered. EDMS 21:45 -Influenza A&B Rapid Antigen - Nose Ordered. EDMS 21:45 Chest, 2 View (pa\\E\\lat) Ordered. EDMS 21:46 NOTHING BY MOUTH+DIET ordered. EDMS 21:49 Call Respiratory complete. rs6 22:09 CBC with Diff Reviewed. ef1 22:26 Financial registration complete. zo 22:32 [facility] Payment Agreement was scanned into [employer] and attached to record. zo 22:56 Basic Metabolic Profile Reviewed. ef1 22:56 Liver Profile Reviewed. ef1 22:56 Urinalysis Reviewed. ef1 22:56 Amylase Reviewed. ef1 22:56 Lipase Reviewed. ef1 22:56 -Influenza A&B Rapid Antigen - Nose Reviewed. ef1 23:02 Amoxicillin-Clavulanate 875 mg 1 tabs PO once ordered. ef1 23:04 Ondansetron ODT Oral Disintegrating Tablet 4 mg PO once; For take home use please ef1 ordered. 11/01 09:39 T-Sheet-- Draft Copy was scanned into [employer] and attached to record. gb 09:39 ECG/EKG was scanned into [employer] and attached to record. gb Administered Medications: 10/31 21:58 Drug: NS 0.9% 1000 ml [sodium chloride 0.9 % intravenous solution] Route: IV; Rate: lf1 bolus; Site: right antecubital; 21:59 Drug: Albuterol-Ipratropium 1 neb [ipratropium-albuterol 0.5 mg-3 mg(2.5 mg base)/3 mL 6 nebulization soln (1 neb)] Route: Nebulizer; 21:59 Drug: Ondansetron 4 mg [ondansetron HCl 2 mg/mL intravenous solution (2 mL)] Route: lf1 IVP; Site: right antecubital; 22:19 Drug: Albuterol-Ipratropium 1 neb [ipratropium-albuterol 0.5 mg-3 mg(2.5 mg base)/3 mL jh6 nebulization soln (1 neb)] Route: Nebulizer; 23:10 Drug: Amoxicillin-Clavulanate 1 tabs [amoxicillin 875 mg-potassium clavulanate 125 mg ka4 tablet (1 tabs)] Route: PO; 23:10 Drug: Ondansetron ODT 4 mg [ondansetron 4 mg disintegrating tablet (1 tabs)] {Note: ka4 dispensed to pt to take home.} Route: PO; 23:18 Follow up: Response: Med's dispensed home ka4 23:19 Follow up: Response: Pt left department before re-evaluation is appropriate ka4 Signatures: Dispatcher [employer] EDMS Liliana Rivera, Reg Reg gb Moises Valera Lisa,RN RN lf1 Marcelina Mcgee, PAShubhamC PA-Kwabena ef1 Loly Momin LPN [employer]EE COMMUNICATIONS SPECIALIST ka4 Kevin Hernández RN RN mb9 Sonya Anderson, JOSE [employer] INSTRUCTOR [id number] Nelson Chacon jh6 The chart was reviewed and I authenticate all verbal orders and agree with the evaluation and treatment provided.Attachments: 22:32 [facility] Payment Agreement zo 11/01 09:39 T-Sheet-- Draft Copy gb 09:39 ECG/EKG gb Chart Complete MTDD
== END 2016-10-31 23:18 | disposition home or self-care (01) ==
LOC: M ED 20:54
DX: J02.0 Streptococcal pharyngitis (principal); R11.2 Nausea with vomiting, unspecified; R19.7 Diarrhea, unspecified; J20.9 Acute bronchitis, unspecified; F17.200 Nicotine dependence, unspecified, uncomplicated
CPT/HCPCS: 36415; 71020; 80048; 80076; 81001; 82150; 83690; 85025; 87086; 87804; 93005; 94640; 96374; 99284; J2405